=== PATIENT | female | born 1980 | race Hispanic/Latino ===

== ENCOUNTER 2016-06-28 00:35 | Emergency (ER) ==
[2016-06-28 01:34] LABS: MANUAL DIFF NEEDED? NO; URINE CULTURE NEEDED? NO; URINE MICRO REVIEW NEEDED? NO; URINE SOURCE CLEAN CATCH
[2016-06-28 01:45] LABS: BASO% 0.3 % (0.0-0.8); BILIRUBIN URINE NEGATIVE (NEGATIVE); BLOOD URINE NEGATIVE (NEGATIVE); COLOR STRAW; EOS# 0.21 X1000 (0.0-0.7); EOS% 2.2 % (0.0-10.0); GLUCOSE URINE NEGATIVE (NEGATIVE); HEMATOCRIT 40.1 % (37.0-47.0); HEMOGLOBIN 13.3 g/dL (12.0-16.0); LEUKOCYTES URINE NEGATIVE (NEGATIVE); LYMPH# 2.78 X1000 (1.2-3.4); LYMPH% 29.5 % (20.5-51.1); MCH 27.1 PG (27-31); MCHC 33.2 g/dL (33-37); MCV 81.8 FL (81-99); MONO# 0.47 X1000 (0.11-0.59); MPV 9.5 FL (7.4-10.4); NITRITE URINE NEGATIVE (NEGATIVE); PLT 363 X1000 (130-400); PROTEIN URINE NEGATIVE (NEGATIVE); SP GRAVITY URINE 1.009; TURBIDITY URINE CLEAR (CLEAR); UROBILINOGEN URINE NORMAL (NORMAL)
[2016-06-28 01:47] LABS: UR EPITHELIAL CELLS <10 /HPF (<10); URINE BACTERIA 1+ /HPF; URINE RBC <10 /HPF (<10); URINE WBC <10 /HPF (<10)
[2016-06-28 01:53] LABS: AGAP 13; ALBUMIN 4.3 g/dL (3.5-5.0); ALKALINE PHOSPHATASE 93 U/L (32-104); AMYLASE 28 U/L (20-200); BUN 15 mg/dL (8-22); CALCIUM 10.1 mg/dL (8.8-10.2); CHLORIDE 99 mmol/L (98-107); COSMO 277; GOT 106 U/L (10-30); GPT 54 U/L (10-36); LIPASE 24 U/L (13-60); POTASSIUM 3.8 mmol/L (3.5-5.1); SODIUM 138 mmol/L (136-145); TCO2 26 mmol/L (25-35); TOTAL BILIRUBIN 0.25 mg/dL (0.20-1.00); TOTAL PROTEIN 7.8 g/dL (6.3-8.3)
--- NOTE | 2016-06-28 03:42 | PROVIDER DOCUMENTATION ---
HPI-Abdominal Pain/GI Problem - General Chief Complaint: Abdominal Pain Stated Complaint: UPPER ABD PAIN Time Seen by Provider: 06/28/16 00:56 Source: patient Allergies/Adverse Reactions: Patient Allergies Allergy/AdvReac Type Severity Reaction Status Date / Time No Known Allergies Allergy Verified 06/28/16 00:43 Home Medications: Home Medication List Medication Instructions Recorded Confirmed Last Taken Type Hydrocodone/Acetaminophen [[place] 1 each PO Q6H PRN #20 tablet 06/28/16 Unknown Rx 5-325 Tablet] - History of Present Illness-ABD Nature of Presenting Problems: 35 y/o HF with a PMHx of kidney stones that presents to the Ed with a 2 week h/ o crampy abdominal pain. Pt states pain is constant and located at the epigastric region with radiation to the LUQ. Intensity has been a constant 7/ 10. ROS is pertinent for bloating. Pt denies any fever, nausea or vomiting. Movement is reported as an aggravating factor. Rest is reported as an alleviating factor. No other issues. Abdominal Pain Onset Location: reports: RUQ, epigastric Pain Radiation: reports: LUQ Quality of Pain: reports: cramping Severity in ED: reports: moderate Onset/Duration: reports: other (2 weeks) Timing: reports: gone now Activities at Onset: reports: none Exposure to sick contacts?: No Modifying Factors: improves with: movement Associated Symptoms: reports: other (bloating) Last BM: this morning Rectal Bleeding: reports: none Rectal Pain: reports: none Emesis Description: reports: none Review of Systems - Adult - REVIEW OF SYSTEMS - ADULT Constitutional: reports: no symptoms reported Eyes: reports: no symptoms reported Ears, Nose, Mouth & Throat: reports: no symptoms reported Cardiovascular: reports: no symptoms reported Respiratory: reports: no symptoms reported Gastrointestinal: reports: abdominal pain. denies: diarrhea, difficulty swallowing, vomiting Genitourinary: reports: no symptoms reported Musculoskeletal: reports: no symptoms reported Integumentary: reports: no symptoms reported Neurological: reports: no symptoms reported Psychiatric: reports: no symptoms reported Endocrine: reports: no symptoms reported Hematologic/Lymphatic: reports: no symptoms reported Allergic/Immunologic: reports: no symptoms reported Past History - Adult - PAST MEDICAL HISTORY-ADULT Review of Records: reports: Old Records Reviewed, Nursing Assessment Review, Medications Reviewed Major Childhood Illnesses: reports: denies history Cardiovascular: reports: denies history Respiratory: reports: denies history Gastrointestinal: reports: denies history Genitourinary: reports: kidney stones Musculoskeletal: reports: denies history Neurological: reports: denies history Psychiatric: reports: denies history Endocrine/Immune: reports: denies history - PRIOR SURGERIES/PROCEDURES Surgical/Procedure History: reports: none - IMMUNIZATION STATUS Childhood Immunizations: See Nurse Assessment Flu Vaccine: See Nurse Assessment - FAMILY HISTORY Family History: reviewed, not pertinent, diabetes - SOCIAL HISTORY Substance Use: none/never Alcohol Use Frequency: 1 or 2 times last year Number of drinks per typical drinking period:: 1 drink Living Situation: family Physical Exam-General - PHYSICAL EXAM-ADULT Initial Vital Signs Reviewed: Yes - CONSTITUTIONAL General Appearance: appears well, alert, no apparent distress. negative: slow to respond, obtunded - EYES Eyes: PERRL/EOMI, pink conjunctivae. negative: sclera injected, scleral icterus - HEAD, EARS, NOSE, MOUTH & THROAT HENMT: normocephalic/atraumatic. negative: pharyngeal erythema, tonsillar exudate - NECK Neck: non-tender, full range of motion, supple. negative: C-spine tenderness - RESPIRATORY Respiratory: chest non-tender, lungs clear, normal breath sounds. negative: crackles, rales, rhonchi, stridor, wheezing - CARDIOVASCULAR Cardiovascular: normal peripheral pulses, regular rate, rhythm, no murmur. negative: irregularly irregular - CHEST (BREASTS) Chest/Breast: deferred, no tenderness. negative: tenderness - GASTROINTESTINAL (ABDOMEN) Abdominal Exam: normal bowel sounds, soft, tenderness. negative: distended, guarding, rigid, rebound, McBurney's point tenderness, Hernandes's sign - GENITOURINARY Female Genitalia/Pelvic Exam: deferred Rectal Exam: deferred - LYMPHATIC Lymphatic: no adenopathy - MUSCULOSKELETAL Back Exam: normal inspection, no CVA tenderness. negative: swelling Extremity: normal range of motion. 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 negative: facial droop, focal weakness, motor weakness - PSYCHIATRIC Psych/Mental Status: normal mood/affect, normal thought content, normal thought process, oriented x 3. negative: anxious, tearful Progress - PLAN OF CARE/RESULTS Progress/Plan/Lab Results: Laboratory Tests 06/28/16 06/28/16 06/28/16 01:20 01:20 01:20 WBC 9.42 RBC 4.90 Hgb 13.3 Hct 40.1 MCV 81.8 MCH 27.1 MCHC 33.2 RDW Std Deviation 13.2 Plt Count 363 MPV 9.5 Immature Gran % (Auto) 0.0 Neut % (Auto) 63.0 Lymph % (Auto) 29.5 Mcminn % (Auto) 5.0 Eos % (Auto) 2.2 Baso % (Auto) 0.3 Immature Gran # (Auto) 0.00 Neut # (Auto) 5.93 Lymph # (Auto) 2.78 Mcminn # (Auto) 0.47 Eos # (Auto) 0.21 Baso # (Auto) 0.03 Sodium 138 Potassium 3.8 Chloride 99 Carbon Dioxide 26 Anion Gap 13 BUN 15 Creatinine 0.5 Estimated GFR/1.73 m2 > 60 BUN/Creatinine Ratio 30 Glucose 114 H Calculated Osmolality 277 Calcium 10.1 Total Bilirubin 0.25 AST 106 H ALT 54 H Alkaline Phosphatase 93 Total Protein 7.8 Albumin 4.3 Globulin 3.5 Albumin/Globulin Ratio 1.2 Amylase 28 Lipase 24 Urine Source CLEAN CATCH Urine Color STRAW Urine Turbidity CLEAR Urine pH 6.0 Ur Specific [place] 1.009 Urine Protein NEGATIVE Ur Glucose (Stick) NEGATIVE Ur Ketones (Stick) NEGATIVE Urine Blood NEGATIVE Urine Nitrite NEGATIVE Urine Bilirubin NEGATIVE Urobilinogen Dipstick NORMAL Urine Leukocytes NEGATIVE Urine WBC (Auto) <10 Urine RBC (Auto) <10 U Epithel Cells (Auto) <10 Urine Bacteria (Auto) 1+ Orders Category Date Time Status ED: Urine Bedside ORDERED Care 06/28/16 01:00 Active Saline Loc DIRECTED Care 06/28/16 00:56 Active NPO Diet 06/28/16 00:56 Active US GB < RUQ (LIMITED) [US] Stat Exams 06/28/16 01:23 Ordered AMYLASE [CHEM] Stat Lab 06/28/16 01:20 Completed CBC WITH ELECTRONIC DIFF [HEME] Stat Lab 06/28/16 01:20 Completed COMPREHENSIVE METABOLIC PANEL [CHEM] Stat Lab 06/28/16 01:20 Completed LIPASE [CHEM] Stat Lab 06/28/16 01:20 Completed URINALYSIS W/POSS RFLX CULT [URINALYSIS] Stat Lab 06/28/16 01:20 Completed Vital Signs - 24 hr 06/28/16 00:37 Temperature 98.2 F Pulse Rate 83 Respiratory 14 Rate Blood Pressure 138/78 - ULTRASOUND (By Radiology) 1 US Study: Gallbladder Impression: Abnormal US Results: gallstones. Departure - Departure Time of Disposition Order: 03:43 DIAGNOSIS: Gallstones without obstruction of gallbladder Qualifiers: Cholelithiasis location: gallbladder Cholecystitis presence: without cholecystitis Qualified Code(s): K80.20 - Calculus of gallbladder without cholecystitis without obstruction Disposition: HOME 01 Certified Medical Emergency: Emergent Condition: Good Additional Instructions: P TO FOLLOW UP WITH DR. DIETZ. PT TO CALL IN AM FOR APPT. ED Follow Up Instructions: You have been treated by a care provider in the Emergency Department. These instructions are being provided to you so you can have an understanding of how to care for yourself upon discharge. Upon discharge from the Emergency Department, you are responsible for making arrangements for follow-up care by a physician of your choice. Take all prescribed medications as directed. Return to the Emergency Department immediately for any new or worsening symptoms. You may call the Physician Referral phone number at [phone] to obtain a list of Physicians who are taking new patients. Prescriptions: Hydrocodone/Acetaminophen [[place] 5-325 Tablet] 1 each PO Q6H PRN #20 tablet PRN Reason: Pain
[2016-06-28 04:06] VITALS: BP 128/79
--- NOTE | 2016-06-28 07:54 | Diag Imaging Result Document ---
PROCEDURE NAME: US GB < RUQ (LIMITED) - 06/28/2016 RIGHT UPPER QUADRANT ULTRASOUND: COMPARISON: None. FINDINGS: The gallbladder is replaced by an irregular wall echo shadow complex. No obvious surrounding free fluid. The shadowing is very clean. The liver, pancreas, and right kidney are normal. The common bile duct measures 3 mm. Aorta, IVC, and main portal vein are patent. Sonographic Hernandes sign was negative. IMPRESSION: Gallbladder packed with numerous gallstones, but no obvious acute cholecystitis.
== END 2016-06-28 04:06 | disposition home or self-care (01) ==
LOC: ED 00:35
DX: K80.20 Calculus of gallbladder without cholecystitis without obstruction (principal); R10.11 Right upper quadrant pain; R10.13 Epigastric pain; R10.12 Left upper quadrant pain; R14.0 Abdominal distension (gaseous); Z87.442 Personal history of urinary calculi
CPT/HCPCS: 76705; 80053; 81001; 82150; 83690; 85025